=== PATIENT | male | born 1940 | race Caucasian/White ===

== ENCOUNTER 2016-11-08 10:33 | Inpatient (IN) ==
--- NOTE | 2016-11-07 21:07 | Discharge Summary ---
<CaitlynkirtCindy - Last Filed: 11/07/16 21:04> Date of Encounter: 11/07/16 - Discharge Diagnosis (1) Rotator cuff tear arthropathy of right shoulder Priority: Primary Status: Acute (2) DMII (diabetes mellitus, type 2) Priority: Secondary Status: Chronic Qualifiers: Diabetes mellitus complication status: with unspecified complications Diabetes mellitus alf insulin use: unspecified longitudinal float operator insulin use status Qualified Code(s): E11.8 - Type 2 diabetes mellitus with unspecified complications (3) HTN (hypertension) Priority: Secondary Status: Chronic Qualifiers: Hypertension type: essential hypertension Qualified Code(s): I10 - Essential (primary) hypertension (4) HLD (hyperlipidemia) Priority: Secondary Status: Chronic Qualifiers: Hyperlipidemia type: unspecified Qualified Code(s): E78.5 - Hyperlipidemia , unspecified (5) CAD (coronary artery disease) Priority: Secondary Status: Chronic Qualifiers: Coronary Disease-Associated Artery/Lesion type: unspecified vessel or lesion type [place] vs. transplanted heart: unspecified whether solomon or transplanted heart Associated angina: angina presence unspecified Qualified Code(s): I25.10 - Atherosclerotic heart disease of solomon coronary artery without angina pectoris - Discharge Medications Home Medications: OxyCODONE Immed Rel [Roxicodone 5 MG] 5 - 10 mg PO Q6HR PRN #40 tablet 11/07/16 [Rx] Alprazolam [Xanax 0.25 MG Tablet] 0.25 mg PO BID PRN 11/08/16 [History] Amlodipine Besylate 10 mg PO HS 11/08/16 [History] Aspirin 81 mg PO DAILY 11/08/16 [History] Atorvastatin [Lipitor] 40 mg PO HS 11/08/16 [History] Carvedilol [Coreg] 25 mg PO BID 11/08/16 [History] Furosemide [Lasix] 20 mg PO DAILY 11/08/16 [History] Linagliptin [Tradjenta] 5 mg PO DAILY 11/08/16 [History] Lisinopril [Zestril] 40 mg PO DAILY 11/08/16 [History] Oxybutynin [Ditropan] 5 mg PO BID 11/08/16 [History] Tamsulosin [Flomax] 0.4 mg PO HS 11/08/16 [History] Allergies/Adverse Reactions: Allergies No Known Allergies Allergy (Verified 11/08/16 13:27) Primary care physician: PCP NO - Patient Status Disposition: Home, Self-Care Condition: Good - Discharge Instructions Follow Up With: Tom Menjivar MD [Partnered Physician] - 12/07/16 9:10 am Cindy Layton PAC [Physician Cable Mock Up Assembler] - 11/18/16 11:45 am Additional Instructions: Discharge Instructions: Total Shoulder Please call [facility] ([phone]), your Primary Care Physician, or report to the Emergency Room if you have any of the following symptoms: Nausea, vomiting, fever greater that 101.5, swelling, chest pain, shortness of breath, increased pain/redness/drainage/odor for your incision site, numbness/ tingling, or any other concerning symptoms. ACTIVITY: Always keep your arm in the sling. Do not raise your arm away from your body. Do not use your arm to help with getting in or out of bed. No weight bearing permitted. Only perform those exercises given to you by your therapist. MEDICATIONS: Upon discharge resume your home medications. Take all the medications as prescribed. Take a stool softener if taking narcotic pain medications. Stool softeners are only effective if you drink enough fluids. Drink 6-8 glass of water or fluids a day, unless this is not allowed for another health problem. Despite using stool softeners, if you haven't had a bowel movement in 3 days, please switch to a gentle laxative. Gentle laxatives are sold over the counter. You should have a bowel movement within 24 hours, if not call the office. You will be discharged from the hospital with a prescription for pain medication. You are encouraged to decrease the use of narcotic pain medication as tolerated. Should you require a refill, please call the office. [facility] prescribes narcotic pain medication for only 4-6 weeks after surgery. If you require pain medication beyond this time period, you may be referred to your Primary Care Physician or to the Pain Clinic for further evaluation. Plan ahead for refills on pain medication as many narcotics either need to be picked up at the office or mailed. It is best to call 48-72 hours in advance of needing a prescription refill so you don't run out of medication. To help control the post-operative pain, you may take NSAIDs (Aleve,Advil, Motrin, ibuprofen, naprosyn) or Tylenol as prescribed on the bottle in addition to the pain medication. ANTICOAGULATION (blood thinners): Continue your Aspirin, Lovenox or Coumadin as prescribed to help prevent a blood clot in the leg or in the lungs. As long as your incision remains dry and you tolerate the NSAIDs (Aleve, Advil, Motrin, ibuprofen, naprosyn), it is OK to use the NSAIDS while you are taking your anticoagulation medication. Should your incision start to drain, stop the NSAID and contact our office. Common symptoms of blood clot in the legs include: localized pain, swelling, calf tenderness, redness or discoloration of the skin. Blood clot in the lung symptoms include: shortness of breath, rapid pulse, sweating, and chest pain that worsens with deep breathing, coughing up blood, lightheadedness, and feelings of anxiety. If you experience any of these symptoms notify your physician immediately, go to the emergency room, or if having trouble breathing , call 911. WOUND CARE: Leave the dressing on for 7 days. You may change the dressing if it becomes saturated greater than 50%. You can shower but not a tub bath or submerge your incision in water. Wash your hands with antibacterial soap, rinse and dry prior to any wound care. If you have john the visiting nurse or rehab facility can remove the stapes 10-14 days after surgery and place steri -strips across the wound. Leave the steri-strips in place until they fall off on their won. You may let water from the shower run on top of the steri- stirips. If you do not have a visiting nurse or rehab facility, you will need to return to the office at 10-14 days for the john to be removed. FOLLOW-UP: Please follow up with your surgeon in the orthopedic clinic, as scheduled - Hospital Course Hospital course: Mr. Antonio is a 76 year old male - Time Spent with Patient Total time spent providing and/or coordinating discharge services: <Tom Menjivar - Last Filed: 11/17/16 10:26> Date of Encounter: 11/17/16 Time of Encounter: 10:26 - Discharge Diagnosis (1) Obesity (BMI 35.0-39.9 without comorbidity) Priority: Secondary Status: Chronic (2) Rotator cuff tear arthropathy of right shoulder Priority: Primary Status: Acute (3) CAD (coronary artery disease) Priority: Secondary Status: Chronic Qualifiers: Coronary Disease-Associated Artery/Lesion type: unspecified vessel or lesion type [place] vs. transplanted heart: unspecified whether sol[place] or transplanted heart Associated angina: angina presence unspecified Qualified Code(s): I25.10 - Atherosclerotic heart disease of sol[place] coronary artery without angina pectoris (4) DMII (diabetes mellitus, type 2) Priority: Secondary Status: Chronic Qualifiers: Diabetes mellitus complication status: with unspecified complications Diabetes mellitus longitudinal float operator insulin use: unspecified alf insulin use status Qualified Code(s): E11.8 - Type 2 diabetes mellitus with unspecified complications (5) HLD (hyperlipidemia) Priority: Secondary Status: Chronic Qualifiers: Hyperlipidemia type: unspecified Qualified Code(s): E78.5 - Hyperlipidemia , unspecified (6) HTN (hypertension) Priority: Secondary Status: Chronic Qualifiers: Hypertension type: essential hypertension Qualified Code(s): I10 - Essential (primary) hypertension Primary care physician: PCP NO - Patient Status Overall status at discharge: patient is progressing back to baseline - Hospital Course Hospital course: Mr. Antonio is a 76 year old male The patient had an uneventful postoperative course. They received antibiotics and physical therapy and were discharged in stable condition. There will follow -up in the office in 2 weeks. - Time Spent with Patient Total time spent providing and/or coordinating discharge services:
[2016-11-08] MEDS ORDERED: CeFAZolin Pre 2,000 MG/100 ML 2,000 MG/100 ML BAG IVPB ONE (11:04)
[2016-11-08] MEDS ORDERED: Ringers Solution, Lactated 1,000 ML IVC SCH ×2 (11:15→15:17)
--- NOTE | 2016-11-08 11:25 | History & Physical Report ---
Date of Encounter: 11/08/16 Time of Encounter: 11:25 24 Hour HP Update - Instructions Instructions: If the History and Physical is less than 30 days old and was completed prior to A.M. admission and or procedure and has NOT been updated on calendar day of procedure please complete this update prior to performing procedure. - Update Patient reports changes in Medical Condition: No Changes in assessment/condition: No Changes in Medication: No Preop tests/diagnostics Reviewed: Yes Surgery Remains Indicated: Yes Consent for Planned Operative Procedure(s) Verified: Yes - Pre-Operative Checklist Preoperative Checklist Indicated: No Prophylactic Antibiotic Ordered: Yes Is VTE Prophylaxis Indicated?: Yes
[2016-11-08] MEDS ORDERED: Famotidine 20 MG/2 ML VIAL IVP ONE (12:15)
--- NOTE | 2016-11-08 12:19 | Anesthesia Evaluation PreOp ---
Date of Encounter: 11/08/16 Time of Encounter: 12:20 - Past History Planned Operation: Rt Total Shoulder Replacement Cardiac History: HTN, Hyperlipidemia, Cardiac Stent (Stent 2013), Other (CAD) Pulmonary History: Denies Any Significant HX, WALDO Dx (CPAP) SR RISK MANAGEMENT CONSULTANT History: Denies Any Significant HX Other Medical History: Renal (CKD), Diabetes Type II (Accu check 110) Alcohol Use: occasionally Drug use: none Medications and Allergies OxyCODONE Immed Rel [Roxicodone 5 MG] 5 - 10 mg PO Q6HR PRN #40 tablet 11/07/16 [Rx] Allergies iodine Adverse Reaction (Unverified 10/25/16 13:34) See Comments - Meds/Allergy Pre-op Review Medications Reviewed: Yes Allergies Reviewed: Yes Beta Blockers on Current Med List: Yes (Took Coreg today 0800) Anesthesia Results - Labs Laboratory Tests 10/25/16 10/25/16 13:37 13:37 Hgb 12.6 L Hct 39.4 Plt Count 231 Sodium 141 Potassium 3.8 BUN 27 H Creatinine 1.46 H - Imaging EKG: report reviewed (SR non specific changes) Additional studies: LVEF 55% Anesthesia Exam O2 Sat Height 1.73 m Height 1.73 m Height 1.73 m Weight 106.594 kg Weight 106.594 kg Weight 106.594 kg O2 Sat by Pulse Oximetry 96 Vital Signs Temp Pulse Resp BP Pulse Ox 97.8 F 54 18 138/84 96 11/08/16 11:12 11/08/16 11:12 11/08/16 11:12 11/08/16 11:12 11/08/16 11:12 Height: 5'8 Weight: 235 lbs NPO (# of Hours): MN Pain Scale: 0 - HEENT Pupil (Motor): Pupils equal, EOMI Mallampati: III Oral Opening: Less than or equal to 3 - SR RISK MANAGEMENT CONSULTANT LOC: Oriented SR RISK MANAGEMENT CONSULTANT Motor: Normal RUE, Normal LUE, Normal RLE, Normal LLE, Normal Face SR RISK MANAGEMENT CONSULTANT Sensory: Normal: RUE, LUE, RLE, LLE, Face - Cardiac Rhythm: Regular Murmur: None JVD: No Carotid Bruit: No - Pulmonary Breath Sounds: bilateral Clear Respiratory Effort: Symmetrical Anesthesia Assess/Plan ASA Score: 3 (HTN DM CKD) Modified Lizzy Scale for Level of Consciousness: Cooperative, oriented, and tranquil Anesthetic Plan: General, Regional Monitoring Plan: Standard Monitors Recovery Plan: PACU (Discussed GA and RA, agrees to proceed)
[2016-11-08] MEDS ORDERED: *HR* Midazolam HCl 2 MG/2 ML VIAL ONE (12:23)
[2016-11-08] MEDS ORDERED: *HR* FentaNYL (PF) 100 MCG/2 ML VIAL ONE (12:23)
[2016-11-08] MEDS ORDERED: *HR* Propofol 200 MG/20 ML VIAL IVP ONE ×2 (12:24→14:01)
[2016-11-08] MEDS ORDERED: ROPIVACAINE HCL/PF 0.5% 30 ML VIAL IJ ONE (13:08)
[2016-11-08] MEDS ORDERED: Tetracaine/PF 20 MG/2 ML AMPUL SPINA ONE (13:13)
[2016-11-08] MEDS ORDERED: Bupivacaine/Clonidine Syringe 1 EACH SYRINGE ONE (13:14)
--- NOTE | 2016-11-08 13:58 | Anesthesia Procedures ---
Date of Encounter: 11/08/16 Time of Encounter: 13:30 Procedures: Anesthesia - Nerve Block Procedure Date: 11/08/16 Time: 13:30 Allergies/Adv Reactions: Allergies No Known Allergies Allergy (Verified 11/08/16 13:27) Pre-op Diagnosis: right rotator cuff arthroscopy Surgical Procedure: right shoulder reverse vball Checklist: Correct Patient Identifier, Correct procedure, History checked Correct side: Right Monitor Applied: EKG, BP, Pulse Oximetry Supplemental Oxygen via Nasal Cannula (L/min): 2 Sedation: Versed (mg): 2 Sedation: Fentanyl (mcg): 100 Indication: Post Op Analgesia Pre-op Neuro Deficits: No Block Type: Supraclavicular Catheter placed: No Sterile Technique: Yes Ultrasound used: Yes Anatomy identified: Yes Visual spread of Local: Yes Neuro Stimulation: No Blood on Needle Aspiration: No Smooth Injection of Local: Yes Pain with Injection of Local: No Prep: Chlorhexadine Needle: 22 x 50 mm Stimuplex Local: 0.25% Bupivicaine w/Clonidine 20 mcg/cc Volume (cc): 30 Number of Attempts: 1 Complications: None/effective block Vitals: Vital Signs/O2 Sat, Most Current Temp Pulse Resp BP Pulse Ox 97.8 F 54 16 160/89 95 11/08/16 11:12 11/08/16 13:28 11/08/16 13:28 11/08/16 13:28 11/08/16 13:28
[2016-11-08] MEDS ORDERED: *HR* HYDROmorphone (PF) 1 MG/ML SYRINGE IVP PRN ×2 (13:59→15:17)
[2016-11-08] MEDS ORDERED: Dexamethasone 4 MG/ML VIAL ONE (14:09)
--- NOTE | 2016-11-08 14:29 | Orthopedic Operative Note ---
Date of procedure: 11/08/16 Pre-op diagnosis: Right shoulder cuff tear arthropathy Post-op diagnosis: same Procedure: Procedure: Right Total Shoulder Replacment Reverse, Estimated blood loss: 100 cc Hardware:Arthrex large glenoid baseplate, 2 4.5 screws. 1 6.5 screw, 42 lateral glenosphere, 10 humeral stem, poly insert 3 Exam Under anesthesia: Full motion and no instability Procedural Notes: Grade 3 arthritic changes humeral head recurrent rotator cuff tear Operative procedure: The patient was brought to the operating room and placed on the operating room table. After general anesthesia was administered the operative shoulder was examined. Findings were noted. The patient was placed in the modified beachchair position. All pressure points were padded appropriately. And the head was stabilized in the neutral position. The operative extremity was prepped and draped in the sterile surgical fashion. The patient received IV antibiotics prior to skin incision. A standard deltopectoral approach was made to the operative shoulder. Incision was made to the skin and subcutaneous tissue,hemo stasis was obtained with Bovie cautery. Using careful blunt dissection the cephalic vein was identified and mobilized medially. The deltopectoral interval was developed and the clavipectoral fascia was incised. The subscap was released off the lesser tuberosity and tagged with #2 FiberWire suture. The humerus was dislocated patient noted to have irreparable tear supraspinatus tendon as well as grade 3 arthritic changes humeral head, and the humeral cut was made along the anatomic neck. Anterior and posterior Bankart retractors were placed to expose the glenoid. The glenoid guide was seated and the centering hole was made. It was reamed with the appropriate large reamer. The large baseplate was seated and secured with (2) 4.5 screws and one 6.5 screw. The baseplate was irrigated and dried and the 2 lateral Glenosphere was seated and secured with the Callahan taper. The Callahan taper was tested and found to be secure the humerus was redislocated and prepared with the diaphyseal reamers, followed by a broaching process up to the appropriate size 10 in the patient's anatomic version. The metaphyseal reamer was then utilized. Trial reduction found the shoulder to be relocatable. Trial components were removed and drill holes were placed in the lesser tuberosity. They were filled with #5 FiberWire suture. These sutures were used for a subscap repair. The appropriate 10 stem was impacted in place in the patient's anatomic version. Trial reduction found the shoulder to be relocatable and stable with the appropriate 3 Surekha Trial component was removed and the real 3 Surekha was seated and secured the shoulder was reduced. The shoulder had excellent motion and excellent stability and no evidence of dislocation. The deep tissue was irrigated with pulse irrigation. The subscap was repaired. The deltopectoral interval was closed with a running #1 PDS suture, subcutaneous tissue was irrigated and closed with 0 PDS suture, the skin was closed with Dermabond. The patient was placed in a sterile dressing, abduction brace and extubated. The patient was then transferred to the recovery room in stable condition. Anesthesia: ANKUR Surgeon: Tom Menjivar Occasional Caregiver: Cindy Layton Condition: stable Disposition: PACU
--- NOTE | 2016-11-08 15:16 | Anesthesia Evaluation Post Op ---
Date of Encounter: 11/08/16 Time of Encounter: 15:15 - Vital Signs Vital Signs: Vital Signs/O2 Sat, Most Current Temp Pulse Resp BP Pulse Ox 97 F L 53 16 133/75 95 11/08/16 14:48 11/08/16 15:08 11/08/16 15:08 11/08/16 15:08 11/08/16 15:08 - Lungs Lungs: Clear Ascult./Percussion - Airway Airway: Non-obstructed - Cardiovascular Regular Rate - Mental Status Mental Status: Alert & Oriented, Answers Appropriately - Pain Pain Scale: 3 Pain Scale used: Numeric (1 - 10) - Nausea Vomiting Nausea Vomiting: Not Present - Hydration Hydration: Ice chips, Has not voided - Discharge PostOp Status: Transfer Patient to floor
[2016-11-08] MEDS ORDERED: MOM Conc 10 ML UD.LIQ PO PRN (15:17)
[2016-11-08] MEDS ORDERED: *HR* OxyCODONE Immed Rel 5 MG TABLET PO PRN ×2 (15:17)
[2016-11-08] MEDS ORDERED: Temazepam 15 MG CAPSULE PO PRN (15:17)
[2016-11-08] MEDS ORDERED: Naloxone 0.4 MG/ML INJ IVP PRN (15:17)
[2016-11-08] MEDS ORDERED: Sennosides 8.6 MG TABLET PO PRN (15:17)
[2016-11-08] MEDS ORDERED: Ondansetron 4 MG/2 ML VIAL IVP PRN (15:17)
[2016-11-08] MEDS ORDERED: Acetaminophen 325 MG TABLET PO PRN (15:17)
[2016-11-08] MEDS ORDERED: ceFAZolin 2,000 MG in D5% in Water 100 ML IVPB ONE ×2 (15:24→19:30)
[2016-11-08 15:39] LABS: Hemoglobin 12.9 g/dL (12.9-16.9)
[2016-11-08] MEDS ORDERED: ceFAZolin 2,000 MG in D5% in Water 100 ML IVPB SCH (16:00)
[2016-11-08] MEDS ORDERED: FLU VACC QS2016-17 36MOS UP/PF 0.5 ML SYRINGE IM ONE (16:29)
[2016-11-08 17:37] VITALS: BP 139/79
[2016-11-08] MEDS ORDERED: *HR* Enoxaparin 30 MG/0.3 ML SYRINGE SQ SCH ×2 (18:00)
== END 2016-11-08 20:50 | disposition home or self-care (01) | DRG 483 ==
LOC: SAMDAY 10:33 → 3NENU 15:17
PROVIDERS: ADMIT Orthopaedic Surgery; ATTEND Orthopaedic Surgery

== ENCOUNTER 2017-07-13 08:20 | Inpatient (IN) ==
--- NOTE | 2017-07-12 19:55 | Discharge Summary ---
<Tom Menjivar - Last Filed: 07/13/17 09:49> Date of Encounter: 07/13/17 - Discharge Diagnosis (1) DMII (diabetes mellitus, type 2) Priority: Secondary Status: Chronic Qualifiers: Diabetes mellitus complication status: with unspecified complications Diabetes mellitus parts counterman insulin use: unspecified parts counterman insulin use status Qualified Code(s): E11.8 - Type 2 diabetes mellitus with unspecified complications (2) HTN (hypertension) Priority: Secondary Status: Chronic Qualifiers: Hypertension type: unspecified Qualified Code(s): I10 - Essential (primary ) hypertension (3) HLD (hyperlipidemia) Priority: Secondary Status: Chronic Qualifiers: Hyperlipidemia type: unspecified (4) CAD (coronary artery disease) Priority: Secondary Status: Chronic Qualifiers: Coronary Disease-Associated Artery/Lesion type: unspecified vessel or lesion type [place] vs. transplanted heart: unspecified whether [place] or transplanted heart Associated angina: angina presence unspecified Qualified Code(s): I25.10 - Atherosclerotic heart disease of [place] coronary artery without angina pectoris (5) Obesity (BMI 35.0-39.9 without comorbidity) Priority: Secondary Status: Chronic (6) Arthritis of right knee Priority: Primary Status: Chronic (7) WALDO on CPAP Priority: Secondary Status: Chronic (8) History of TIA (transient ischemic attack) and stroke Priority: Secondary Status: Chronic (9) Status post total right knee replacement Priority: Primary Status: Acute - Discharge Medications Prescriptions: Aspirin Enteric Coated [Aspirin EC] 325 mg PO DAILY 21 Days #21 tablet. OxyCODONBrandon Immed Rel [Roxicodone 5 MG] 5 mg PO Q6HR PRN 7 Days #28 tablet PRN Reason: Pain Home Medications: ALPRAZolam [Xanax 0.25 MG Tablet] 0.25 mg PO TID PRN 11/08/16 [History] Amlodipine Besylate 10 mg PO HS 11/08/16 [History] Atorvastatin [Lipitor] 40 mg PO HS 11/08/16 [History] Carvedilol [Coreg] 25 mg PO BID 11/08/16 [History] Furosemide [Lasix] 20 mg PO DAILY 11/08/16 [History] Linagliptin [Tradjenta] 5 mg PO DAILY 11/08/16 [History] Lisinopril [Zestril] 40 mg PO DAILY 11/08/16 [History] Oxybutynin [Ditropan] 5 mg PO BID 11/08/16 [History] Tamsulosin [Flomax] 0.4 mg PO HS 11/08/16 [History] Aspirin Enteric Coated [Aspirin EC] 325 mg PO DAILY 21 Days #21 tablet. [Rx] OxyCODONE Immed Rel [Roxicodone 5 MG] 5 mg PO Q6HR PRN 7 Days #28 tablet [Rx] Aspirin 325 mg PO DAILY 07/13/17 [History] Aspirin/Sod Bicarb/Citric Acid [[place]illy-[place] Es Tab Eff] 500 mg PO PER PKG DI [History] Cholecalciferol (D-3) [Vitamin D] 1,000 unit PO DAILY 07/13/17 [History] Cyanocobalamin (Vitamin B-12) [Vitamin B-12] 1,000 mcg SL DAILY 07/13/17 [ History] Melatonin 3 mg PO HS PRN 07/13/17 [History] Vitamin A 10,000 unit PO DAILY 07/13/17 [History] Allergies/Adverse Reactions: 3 Allergy/AdvReac Type Severity Reaction Status Date / Time iodine Allergy Hives Verified 07/13/17 09:18 Primary care physician: PCP NONE - Patient Status Disposition: Home, Self-Care - Discharge Instructions Follow Up With: NONE,PCP [Primary Care Provider] - Additional Instructions: Discharge Instructions: Total Knee Replacement Please call [facility] ([phone]), your Primary Care Physician, or report to the Emergency Room if you have any of the following symptoms: Nausea, vomiting, fever greater that 101.5, swelling, chest pain, shortness of breath, increased pain/redness/drainage/odor for your incision site, numbness/ tingling, or any other concerning symptoms. ACTIVITY:Weight-bearing as tolerated. You may progress off support (crutches or walker) as tolerated. MEDICATIONS: Upon discharge resume your home medications. Take all the medications as prescribed. Take a stool softener if taking narcotic pain medications. Stool softeners are only effective if you drink enough fluids. Drink 6-8 glass of water or fluids a day, unless this is not allowed for another health problem. Despite using stool softeners, if you haven't had a bowel movement in 3 days, please switch to a gentle laxative. Gentle laxatives are sold over the counter. You should have a bowel movement within 24 hours, if not call the office. You will be discharged from the hospital with a prescription for pain medication. You are encouraged to decrease the use of narcotic pain medication as tolerated. Should you require a refill, please call the office. [facility] prescribes narcotic pain medication for only 4-6 weeks after surgery. If you require pain medication beyond this time period, you may be referred to your Primary Care Physician or to the Pain Clinic for further evaluation. Plan ahead for refills on pain medication as many narcotics either need to be picked up at the office or mailed. It is best to call 48-72 hours in advance of needing a prescription refill so you don't run out of medication. To help control the post-operative pain, you may take NSAIDs (Aleve,Advil, Motrin, Ibuprofen, Naprosyn) or Tylenol as prescribed on the bottle in addition to the pain medication. ANTICOAGULATION (blood thinners): Continue your Aspirin, Lovenox or Coumadin as prescribed to help prevent a blood clot in the leg or in the lungs. As long as your incision remains dry and you tolerate the NSAIDs (Aleve, Advil, Motrin, ibuprofen, naprosyn), it is OK to use the NSAIDS while you are taking your anticoagulation medication. Should your incision start to drain, stop the NSAID and contact our office. Common symptoms of blood clot in the legs include: localized pain, swelling, calf tenderness, redness or discoloration of the skin. Blood clot in the lung symptoms include: shortness of breath, rapid pulse, sweating, and chest pain that worsens with deep breathing, coughing up blood, lightheadedness, feelings of anxiety. If you experience any of these symptoms notify your physician immediately, go to the emergency room, or if having trouble breathing, call 911. WOUND CARE: Leave the dressing on for 7 to 10days. You may change the dressing if it becomes saturated greater than 50%. Do not get the dressing wet at anytime. Wash your hands with antibacterial soap, rinse and dry prior to any wound care. If you have john the visiting nurse or rehab facility can remove the stapes 10-14 days after surgery and place steri-strips across the wound. Leave the steri-strips in place until they fall off on their won. You may let water from the shower run on top of the steri-strips. If you do not have a visiting nurse or rehab facility, you will need to return to the office at 10-14 days for the john to be removed. If you have itching or redness around the dressing call the office. FOLLOW-UP: Please follow up with your surgeon in the orthopedic clinic in 4 weeks from the day of surgery. If you have john that need to be removed, you will need to come back to the office in 10-14 days from the day of surgery. - Hospital Course Hospital course: Mr. Antonio is a 76 year old male - Time Spent with Patient Total time spent providing and/or coordinating discharge services: <Yanni Ko E - Last Filed: 07/15/17 17:43> Date of Encounter: 07/13/17 Time of Encounter: 12:00 - Discharge Diagnosis (1) Arthritis of right knee Priority: Primary Status: Chronic (2) WALDO on CPAP Priority: Secondary Status: Chronic (3) History of TIA (transient ischemic attack) and stroke Priority: Secondary Status: Chronic (4) DMII (diabetes mellitus, type 2) Priority: Secondary Status: Chronic Qualifiers: Diabetes mellitus complication status: with unspecified complications Diabetes mellitus mcfp insulin use: unspecified parts counterman insulin use status Qualified Code(s): E11.8 - Type 2 diabetes mellitus with unspecified complications (5) HTN (hypertension) Priority: Secondary Status: Chronic Qualifiers: Hypertension type: unspecified Qualified Code(s): I10 - Essential (primary ) hypertension (6) HLD (hyperlipidemia) Priority: Secondary Status: Chronic Qualifiers: Hyperlipidemia type: unspecified Qualified Code(s): E78.5 - Hyperlipidemia , unspecified Primary care physician: PCP NONE - Hospital Course Hospital course: Mr. Antonio is a 76 year old male - Time Spent with Patient Total time spent providing and/or coordinating discharge services:
--- NOTE | 2017-07-12 20:00 | Physician Discharge Referral ---
Home Health/Hosp Referral Info Transfer to: Home Health Attending Provider: Dr. Tom Menjivar - Diagnosis (1) Status post total right knee replacement Priority: Primary Status: Acute (2) Arthritis of right knee Priority: Primary Status: Chronic (3) WALDO on CPAP Priority: Secondary Status: Chronic (4) History of TIA (transient ischemic attack) and stroke Priority: Secondary Status: Chronic (5) DMII (diabetes mellitus, type 2) Priority: Secondary Status: Chronic (6) HTN (hypertension) Priority: Secondary Status: Chronic (7) HLD (hyperlipidemia) Priority: Secondary Status: Chronic - Respiratory Orders Smoking Cessation: Smoking cessation has been advised. For more information, call the [place] Tobacco Quit Line at 3-464-MEDK-NOW. - Dressing/Wound Care Site: right knee Type of Dressing/Treatments w/Frequency: Opsite dressing, leave intact until first post-operative visit. If dressing becomes >50% saturated, contact office, remove dressing and place appropriate dressing in its place. Do not allow for dressing to get wet. Homar in place, plan to remove at post-operative day #14-16. - Diet/Nutrition Diet/Nutrition Orders: Regular - Activity Activity Orders: Up ad franck, Ambulate, Chair, Walker Activity: List: Total Knee replacement Precautions x 6 weeks Apply cold therapy wrap 3-6x/day for 20 minutes at a time. Encourage ambulation throughout the day and incentive spirometer 10x/hour. Elevate affected extremity above heart as tolerated. Brace: Wear knee immobilizer at night x 2 weeks. - Transfer Medications Prescriptions: OxyCODONE Immed Rel [Roxicodone 5 MG] 5 mg PO Q6HR PRN 7 Days #28 tablet PRN Reason: Pain Aspirin Enteric Coated [Aspirin EC] 325 mg PO DAILY 21 Days #21 tablet. Home Medications: OxyCODONE Immed Rel [Roxicodone 5 MG] 5 - 10 mg PO Q6HR PRN #40 tablet 11/07/16 [Rx] ALPRAZolam [Xanax 0.25 MG Tablet] 0.25 mg PO BID PRN 11/08/16 [History] Amlodipine Besylate 10 mg PO HS 11/08/16 [History] Aspirin 81 mg PO DAILY 11/08/16 [History] Atorvastatin [Lipitor] 40 mg PO HS 11/08/16 [History] Carvedilol [Coreg] 25 mg PO BID 11/08/16 [History] Furosemide [Lasix] 20 mg PO DAILY 11/08/16 [History] Linagliptin [Tradjenta] 5 mg PO DAILY 11/08/16 [History] Lisinopril [Zestril] 40 mg PO DAILY 11/08/16 [History] Oxybutynin [Ditropan] 5 mg PO BID 11/08/16 [History] Tamsulosin [Flomax] 0.4 mg PO HS 11/08/16 [History] Aspirin Enteric Coated [Aspirin EC] 325 mg PO DAILY 21 Days #21 tablet. [Rx] OxyCODONE Immed Rel [Roxicodone 5 MG] 5 mg PO Q6HR PRN 7 Days #28 tablet [Rx] Allergies/Adverse Reactions: 3 Allergy/AdvReac Type Severity Reaction Status Date / Time iodine Allergy Hives Unverified 07/08/17 14:05 Certification: Further, I certify that my clinical findings support that this patient is homebound (i.e. absences from home require considerable and taxing effort and are for medical reasons or islam services or infrequently or short duration when for other reasons) because: Homebound Reason: Post-surgery restriction and or conditions limit ability to leave home Attestation: My signature below is to certify that this patient is under my care and that I, or nurse practitioner, or a physician child care assistant working with me, has a face-to- face encounter with this patient.
[2017-07-13] MEDS ORDERED: Lidocaine -MPF 1% 2 ML VIAL ID ONE (08:40)
[2017-07-13] MEDS ORDERED: CeFAZolin Pre 2,000 MG/100 ML 2,000 MG/100 ML BAG IVPB ONE (08:40)
[2017-07-13] MEDS ORDERED: Ringers Solution, Lactated 1,000 ML IVC SCH ×2 (08:45→12:46)
[2017-07-13] MEDS ORDERED: *HR* Propofol 200 MG/20 ML VIAL IVP ONE (09:05)
[2017-07-13] MEDS ORDERED: *HR* FentaNYL (PF) 100 MCG/2 ML VIAL ONE (09:05)
[2017-07-13] MEDS ORDERED: *HR* Midazolam HCl 2 MG/2 ML VIAL ONE (09:05)
--- NOTE | 2017-07-13 09:05 | History & Physical Report ---
Date of Encounter: 07/13/17 Time of Encounter: 09:04 24 Hour HP Update - Instructions Instructions: If the History and Physical is less than 30 days old and was completed prior to A.M. admission and or procedure and has NOT been updated on calendar day of procedure please complete this update prior to performing procedure. - Update Patient reports changes in Medical Condition: No Changes in examination, assessment, or condition: No Changes in Medication: No Preop tests/diagnostics Reviewed: Yes Surgery Remains Indicated: Yes Consent for Planned Operative Procedure(s) Verified: Yes - Pre-Operative Checklist Preoperative Checklist Indicated: No Prophylactic Antibiotic Ordered: Yes Is VTE Prophylaxis Indicated?: Yes
[2017-07-13] MEDS ORDERED: Lidocaine -MPF 2% 2 ML VIAL ONE (09:06)
--- NOTE | 2017-07-13 09:38 | Anesthesia Evaluation PreOp ---
Date of Encounter: 07/13/17 Time of Encounter: 09:37 - Past History Planned Operation: Right knee arthroplasty Cardiac History: HTN, Hyperlipidemia, Cardiac Stent (2013) Pulmonary History: WALDO Dx (Severe sleep apnea) NURSE ORTHO History: CVA (mild stroke (eye involvement)) Other Medical History: Renal (ckd) Anesthesia History: No Prior Anesthetic Complications Alcohol Use: occasionally Drug use: none Medications and Allergies ALPRAZolam [Xanax 0.25 MG Tablet] 0.25 mg PO TID PRN 11/08/16 [History] Amlodipine Besylate 10 mg PO HS 11/08/16 [History] Atorvastatin [Lipitor] 40 mg PO HS 11/08/16 [History] Carvedilol [Coreg] 25 mg PO BID 11/08/16 [History] Furosemide [Lasix] 20 mg PO DAILY 11/08/16 [History] Linagliptin [Tradjenta] 5 mg PO DAILY 11/08/16 [History] Lisinopril [Zestril] 40 mg PO DAILY 11/08/16 [History] Oxybutynin [Ditropan] 5 mg PO BID 11/08/16 [History] Tamsulosin [Flomax] 0.4 mg PO HS 11/08/16 [History] Aspirin Enteric Coated [Aspirin EC] 325 mg PO DAILY 21 Days #21 tablet. [Rx] OxyCODONE Immed Rel [Roxicodone 5 MG] 5 mg PO Q6HR PRN 7 Days #28 tablet [Rx] Aspirin 325 mg PO DAILY 07/13/17 [History] Aspirin/Sod Bicarb/Citric Acid [[place] Es Tab Eff] 500 mg PO PER PKG DI [History] Cholecalciferol (D-3) [Vitamin D] 1,000 unit PO DAILY 07/13/17 [History] Cyanocobalamin (Vitamin B-12) [Vitamin B-12] 1,000 mcg SL DAILY 07/13/17 [ History] Melatonin 3 mg PO HS PRN 07/13/17 [History] Vitamin A 10,000 unit PO DAILY 07/13/17 [History] 3 Allergy/AdvReac Type Severity Reaction Status Date / Time iodine Allergy Hives Verified 07/13/17 09:18 - Meds/Allergy Pre-op Review Medications Reviewed: Yes Allergies Reviewed: Yes Beta Blockers on Current Med List: Yes If Beta Blockers taken, Date/Time (Last Dose taken): carvedilol 07-13-17 6:30 Anesthesia Results - Labs Laboratory Tests 11/08/16 07/08/17 07/08/17 15:27 14:25 14:25 WBC 9.9 Hgb 13.3 Hct 42.6 Plt Count 240 PT 11.6 INR 1.1 APTT 29.0 Sodium Potassium Chloride Carbon Dioxide BUN Creatinine Est GFR ( Amer) Est GFR (Non-Af Amer) BUN/Creatinine Ratio POC Glucose 110 H Est Mean Plasma Glucose Hemoglobin A1c 07/08/17 07/08/17 14:25 14:25 WBC Hgb Hct Plt Count PT INR APTT Sodium 143 Potassium 4.0 Chloride 111 H Carbon Dioxide 27 BUN 22 Creatinine 1.37 H Est GFR ( Amer) > 60 Est GFR (Non-Af Amer) 51 L BUN/Creatinine Ratio 16 POC Glucose Est Mean Plasma Glucose 126 Hemoglobin A1c 6.0 H - Imaging EKG: report reviewed, image reviewed (SINUS BRADYCARDIA LEFT ANTERIOR FASCICULAR BLOCK POSSIBLE ANTEROLATERAL MYOCARDIAL INFARCTION, OF INDETERMINATE AGE) Anesthesia Exam Last Vital Signs Temp 98.2 F 07/13/17 08:59 Pulse 57 07/13/17 08:59 Resp 18 07/13/17 08:59 BP 140/85 07/13/17 08:59 Pulse Ox 95 07/13/17 08:59 Weight: 111 kg NPO (# of Hours): > 8 hrs - HEENT Pupil (Motor): Pupils equal, EOMI Mallampati: III Teeth: Poor dentition Oral Opening: Greater than 3 - NURSE ORTHO LOC: Oriented NURSE ORTHO Motor: Normal RUE, Normal LUE, Normal RLE, Normal LLE, Normal Face - Cardiac Rhythm: Regular Murmur: None - Pulmonary Breath Sounds: bilateral Clear Respiratory Effort: Symmetrical Anesthesia Assess/Plan ASA Score: 3 Modified Henderson Scale for Level of Consciousness: Cooperative, oriented, and tranquil Anesthetic Plan: General, Regional Monitoring Plan: Standard Monitors Recovery Plan: PACU
[2017-07-13] MEDS ORDERED: Bupivacaine-MPF 0.25% 10 ML VIAL ONE (09:51)
[2017-07-13] MEDS ORDERED: ROPIVACAINE HCL/PF 0.5% 30 ML VIAL ONE (09:51)
[2017-07-13] MEDS ORDERED: Ethanol\\Acetic Acid\\Na Ace\\Ben 1,000 ML IRRIG.SOLN IR ONE (09:54)
--- NOTE | 2017-07-13 10:16 | Anesthesia Procedures ---
Date of Encounter: 07/13/17 Time of Encounter: 10:14 Procedures: Anesthesia - Nerve Block Procedure Date: 07/13/17 Time: 10:14 Allergies/Adv Reactions: 3 Allergy/AdvReac Type Severity Reaction Status Date / Time iodine Allergy Hives Verified 07/13/17 09:18 Pre-op Diagnosis: right knee oa Surgical Procedure: right total knee Checklist: Correct Patient Identifier, Correct procedure, History checked Correct side: Right Blood Thinner: No Monitor Applied: EKG, BP, Pulse Oximetry Supplemental Oxygen via Nasal Cannula (L/min): 2 Sedation: Versed (mg): 2 Indication: Post Op Analgesia Pre-op Neuro Deficits: No Block Type: Femoral (0.5% ropivicaine 30 ml), Other (iPACK 0.25% bupivicaine) Catheter placed: No Sterile Technique: Yes Ultrasound used: Yes Anatomy identified: Yes Visual spread of Local: Yes Neuro Stimulation: No Blood on Needle Aspiration: No Smooth Injection of Local: Yes Pain with Injection of Local: No Prep: Chlorhexadine Needle: 22 x 50 mm Stimuplex (femoral), 21 x 100 mm Stimuplex (iPACK) Local: Other Volume (cc): 50 Number of Attempts: 1 Complications: None/effective block
[2017-07-13] MEDS ORDERED: Dexamethasone 4 MG/ML VIAL ONE (10:37)
[2017-07-13] MEDS ORDERED: Ondansetron 4 MG/2 ML VIAL ONE (10:37)
[2017-07-13] MEDS ORDERED: *HR* Promethazine 25 MG/ML VIAL IVP PRN (10:48)
[2017-07-13] MEDS ORDERED: Ondansetron 4 MG/2 ML VIAL IVP ONE (10:48)
--- NOTE | 2017-07-13 11:09 | Orthopedic Operative Note ---
Date of procedure: 07/13/17 Pre-op diagnosis: Right knee arthritis Post-op diagnosis: same Procedure: Procedure: Right Total knee replacement Estimated blood loss: 300 cc Hardware: Metal and polyethylene replacement. Arthrex Femur: 7 Tibia: 6 PS insert: 16 Patella: 37 Exam Under anesthesia: Full flexion and extension, no instability Procedural Notes: Grade 4 arthritic changes medial compartment and patellofemoral joint. Operative procedure: The patient was brought to the operating room and placed on the operating room table. After general anesthesia was administered the operative knee was examined. Findings were noted in the exam under anesthesia. The operative extremity was prepped and draped in sterile surgical fashion. The patient received IV antibiotics prior to skin incision. A standard midline incision was made centered over the patella. The incision was made through the skin and subcutaneous tissue. A medial parapatellar tendon approach was performed. Care was taken to preserve tissue along the medial aspect of the patella. And to protect the patella tendon. The deep MCL was released off the medial tibia. The infra patella fat pad was excised. Knee was brought into flexion. Grade 4 arthritic changes medial compartment and patellofemoral joint. The entry hole was made for the intramedullary femoral guide. The guide was seated in 6 degrees of valgus. Anterior cut was made followed by the distal cut. The ACL the PCL the medial and the lateral menisci were excised. The tibia was subluxed forward. The entry hole was made for the intramedullary tibial guide. Guide was seated to resect 2 mm off the more abnormal side. The knee was brought into flexion the distal femur was sized to a 7. The femoral guide was seated, the anterior cut was made followed by the posterior condylar cut, followed by the chamfer cuts. The finishing guide was seated the box cut was made and the lug holes were drilled. The tibia was sized to a 6, the tibial tray was seated and prepared with the large drill followed by the fin cutter. Trial reduction revealed full extension no varus valgus instability with the appropriate 16 PS Surekha. The patella was everted and cut was made at the level of the insertion of the quadriceps and patella tendon. The patella was sized to a 37 the guide was seated and the lug holes are drilled. Trial reduction revealed excellent patella tracking. All trial components were removed all bony surfaces were irrigated. The tibia was cemented first followed by the femur. The 16 PS Surekha was seated and the knee was brought into full extension. The patella was cemented and held in place with the patellar holding clamp. After the cement had hardened, the knee sat for 2 minutes with a Betadine saline solution. The PA close the knee. The knee was then irrigated out with 2 L of pulse irrigation. The extensor mechanism was closed with #2 FiberWire suture and #2 PDS suture. The subcutaneous tissue was then irrigated and closed deep with #1 PDS suture superficially with 0 PDS suture and skin was closed with skin john. The patient was then placed in a sterile dressing and a postoperative brace extubated and transferred to recovery room in stable condition. Anesthesia: ANKUR Surgeon: Tom Menjivar Courtesy Van Driver: Yanni Ko Condition: stable Disposition: PACU
[2017-07-13] MEDS: *HR* HYDROmorphone (PF) 1 MG/ML SYRINGE IVP PRN ×2 (12:00→12:05)
[2017-07-13] MEDS ORDERED: Insulin LISPRO 300 UNITS/3 ML VIAL SQ SCH ×2 (12:46→21:00)
[2017-07-13] MEDS ORDERED: Naloxone 0.4 MG/ML INJ IVP PRN (12:46)
[2017-07-13] MEDS ORDERED: Dextrose Gel 15 GM PO PRN ×2 (12:46)
[2017-07-13] MEDS ORDERED: ALPRAZolam 0.25 MG TABLET PO PRN (12:46)
[2017-07-13] MEDS ORDERED: *HR* Dextrose 50 % in Water (Syg) 50 ML SYRINGE IVP PRN (12:46)
[2017-07-13] MEDS ORDERED: *HR* OxyCODONE Immed Rel 5 MG TABLET PO PRN ×2 (12:46)
[2017-07-13] MEDS ORDERED: Ondansetron 4 MG/2 ML VIAL IVP PRN (12:46)
[2017-07-13] MEDS ORDERED: *HR* HYDROmorphone (PF) 1 MG/ML SYRINGE IVP PRN (12:46)
[2017-07-13] MEDS ORDERED: D5% in Water 1,000 ML IVC PRN (12:46)
[2017-07-13 13:17] LABS: Hematocrit 39.1 % (37.5-50.1); Hemoglobin 12.6 g/dL (12.9-16.9)
--- NOTE | 2017-07-13 13:33 | Anesthesia Evaluation Post Op ---
Date of Encounter: 07/13/17 Time of Encounter: 13:15 - Vital Signs Vital Signs: Last Vital Signs Temp 97.5 F L 07/13/17 13:16 Pulse 66 07/13/17 13:16 Resp 14 07/13/17 13:16 BP 166/91 07/13/17 13:16 Pulse Ox 94 07/13/17 13:21 - Lungs Lungs: Clear Ascult./Percussion - Airway Airway: Non-obstructed - Cardiovascular Regular Rate - Mental Status Mental Status: Alert & Oriented, Answers Appropriately - Pain Pain Scale: 3 - Nausea Vomiting Nausea Vomiting: Not Present - Hydration Hydration: NPO - Discharge PostOp Status: Discharge Patient to home
[2017-07-13] MEDS ORDERED: ceFAZolin 2,000 MG in D5% in Water 100 ML IVPB SCH ×2 (14:45→18:00)
[2017-07-13 15:02] VITALS: BP 135/84
[2017-07-13] MEDS ORDERED: FLUARIX QUAD 2017-18 36MOS UP/PF 0.5 ML SYRINGE IM ONE (15:07)
[2017-07-13] MEDS ORDERED: *HR* Enoxaparin 30 MG/0.3 ML SYRINGE SQ SCH ×4 (15:12→18:00)
[2017-07-13] MEDS ORDERED: Temazepam 15 MG CAPSULE PO PRN (21:00)
[2017-07-13] MEDS ORDERED: Melatonin 3 MG TABLET PO PRN (21:00)
[2017-07-13] MEDS ORDERED: amLODIPine 5 MG TABLET PO SCH (21:00)
[2017-07-13] MEDS ORDERED: Sennosides 8.6 MG TABLET PO PRN (21:00)
[2017-07-13] MEDS ORDERED: MOM Conc 10 ML UD.LIQ PO PRN (21:00)
[2017-07-14] MEDS ORDERED: Cyanocobalamin (B-12) 1,000 MCG TABLET PO SCH (09:00)
[2017-07-14] MEDS ORDERED: Furosemide 20 MG TABLET PO SCH (09:00)
[2017-07-14] MEDS ORDERED: Lisinopril 20 MG TABLET PO SCH (09:00)
[2017-07-14] MEDS ORDERED: Aspirin 325 MG TABLET PO SCH (09:00)
[2017-07-14] MEDS ORDERED: Cholecalciferol (D-3) 1,000 UNIT TABLET PO SCH (09:00)
== END 2017-07-13 16:52 | disposition home health service (06) | DRG 470 ==
LOC: SAMDAY 08:20 → 3NENU 08:20 → EDSTATUS 10:45 → 3NENU 12:49 → SAMDAY 16:52 → 3NENU 08-23 13:55
PROVIDERS: ADMIT Orthopaedic Surgery; ATTEND Orthopaedic Surgery